=== PATIENT | female | born 1960 | race Caucasian/White ===

== ENCOUNTER 2019-11-04 16:59 | Outpatient (CLI) | payer MEDICAID | END 2019-11-04 17:00 | disposition EMS.NT | LOC: EMS 16:59 | PROVIDERS: ATTEND Surgery | DX: S99.911A Unspecified injury of right ankle, initial encounter (principal); X50.9XXA Other and unspecified overexertion or strenuous movements or postures, initial encounter ==

== ENCOUNTER 2020-04-20 03:48 | Emergency (ER) | payer MEDICAID, OTHER ==
--- NOTE | 2020-04-20 03:51 | ED Physician Documentation ---
History of Present Illness - Stated complaint Stated Complaint: F - History obtained from History obtained from: Patient - Additonal information Additional information: The patient is a 59-year-old female with a history of recurrent radiation cystitis secondary to cervical cancer treatment over 14 years prior. patient reports that she is having difficulty urinating and urinary retention and is noticing frankly bloody urine. Denies being anticoagulated. Denies fevers or flank pain or any other complaints. Review of Systems Constitutional: reports: Reviewed and negative Eyes: reports: Reviewed and negative Ears: reports: Reviewed and negative Nose: reports: Reviewed and negative Throat: reports: Reviewed and negative Cardiac: reports: Reviewed and negative Respiratory: reports: Reviewed and negative GI: reports: Reviewed and negative : reports: Dysuria, Frequency, Hesitancy, Unable to Void, Hematuria Skin: reports: Reviewed and negative Musculoskeletal: reports: Reviewed and negative Neurologic: reports: Reviewed and negative Psychiatric: reports: Reviewed and negative Endocrine: reports: Reviewed and negative Immunocompromised: reports: Reviewed and negative PD PAST MEDICAL HISTORY - Present Medications Home Medications: Ambulatory Orders Medication Instructions Recorded Confirmed Cephalexin [Keflex] 500 mg PO QID #40 capsule 04/20/20 - Allergies Allergies/Adverse Reactions: Allergies Allergy/AdvReac Type Severity Reaction Status Date / Time naproxen Allergy Unknown Verified 04/20/20 04:21 PD ED PE NORMAL - Vitals Vital signs reviewed: Yes - General General: Alert and oriented X 3, No acute distress, Well developed/nourished - HEENT HEENT: PERRL - Neck Neck: Supple, no meningeal sign - Cardiac Cardiac: RRR, No murmur - Respiratory Respiratory: Clear bilaterally - Abdomen Abdomen: Normal bowel sounds, Soft, Non tender, Non distended - Back Back: No CVA TTP, No spinal TTP - Derm Derm: Normal color, Warm and dry, No rash - Extremities Extremities: No deformity, No tenderness to palpate, Normal ROM s pain, No edema, No calf tenderness / cord - Neuro Neuro: Alert and oriented X 3 - Psych Psych: Normal mood, Normal affect Results - Vitals Vitals: Vital Signs - 24 hr 04/20/20 04/20/20 03:55 05:55 Temperature 36.5 C 36.6 C Heart Rate 99 77 Respiratory 16 17 Rate Blood Pressure 150/77 H 142/79 H O2 Saturation 96 97 Oxygen O2 Source Room air - Labs Labs: Laboratory Tests 04/20/20 05:10 Urine Color BROWN Urine Clarity SL. CLOUDY Urine pH 7.0 Ur Specific [place] 1.025 Urine Protein Urine Glucose (UA) 100 H Urine Ketones 15 H Urine Occult Blood LARGE H Urine Nitrite Urine Bilirubin NEGATIVE Urine Urobilinogen Ur Leukocyte Esterase Urine RBC TNTC H Urine WBC >25 H Ur Squamous Epith Cells NONE SEEN Urine Bacteria Many H Ur Microscopic Review INDICATED Urine Culture Comments INDICATED PD MEDICAL DECISION MAKING - ED course Complexity details: reviewed results, re-evaluated patient, considered differential (hemorrhagic cystitis, radiation cystitis, UTI), d/w patient ED course: 59-year-old female with history of radiation cystitis is been recurrent for the last 14 years over the last several days she has been having dysuria and then progressive with hematuria and urinary frequency and now is unable to void her bladder scan shows approximately 300cc we did then did try p.o. challenge and a repeat bladder scan then showed a bladder scan of over 400 cc she is still unable to void Campos catheter was placed with no blood clots and dark urine noted urinalysis is consistent with hematuria as well as large number of white blood cells and large number of bacteria she will be treated empirically with Keflex 500 mg 4 times a day for the next 10 days as well's instructions on Campos care and given a referral to urology. She should return to the emergency department with worsening pain fevers or any concerns. Otherwise I like her to follow-up with her primary care provider this week as well as urology. Departure - Departure Disposition: 01 Home, Self Care Clinical Impression: Cystitis, Urinary retention Hematuria Qualifiers: Hematuria type: unspecified type Qualified Code(s): R31.9 - Hematuria, unspecified Condition: Stable Instructions: ED Catheter Care Campos, ED Retention Urinary Female, ED UTI Cystitis Female Follow-Up: Melvin Baxter MD [Provider Admit Priv/Credential] - 04/20/20 Polina Brian MD [Physician No Access] - 04/20/20 Prescriptions: Cephalexin [Keflex] 500 mg PO QID #40 capsule Comments: keep campos catheter in place until seen by urology. take antibiotics as directed. return to the emergency department with worsening pain fevers or any concerns. Discharge Date/Time: 04/20/20 06:00
[2020-04-20 05:16] LABS: GLUCOSE, URINE (UA) 100 mg/dL (NEGATIVE); KETONES,URINE (UA) 15 mg/dL (NEGATIVE); OCCULT BLOOD,URINE LARGE (NEGATIVE)
[2020-04-20 05:21] LABS: CLARITY,URINE SL. CLOUDY (CLEAR)
[2020-04-20 05:22] LABS: BILIRUBIN,URINE NEGATIVE (NEGATIVE); ICTOTEST,URINE NEGATIVE
[2020-04-20 05:26] LABS: BACTERIA,URINE Many /HPF (None Seen); RBC,URINE TNTC /HPF (0-5); SQUAMOUS EPITHELIAL CELL,UR NONE SEEN (<= Few)
[2020-04-20] MEDS ORDERED: cephALEXin 250 MG CAPSULE PO STA (05:31)
[2020-04-20 05:56] VITALS: BP 142/79
== END 2020-04-20 06:00 | disposition home or self-care (01) ==
LOC: ED 03:48
DX: N30.91 Cystitis, unspecified with hematuria (principal); R33.9 Retention of urine, unspecified; Z85.41 Personal history of malignant neoplasm of cervix uteri; Z92.3 Personal history of irradiation
CPT/HCPCS: 51702; 51798; 81001; 87086; 99283; A9270; 81003